=== PATIENT | female | born 1995 | race Caucasian/White ===

== ENCOUNTER 2019-05-06 12:33 | Day surgery (SDC) | payer OTHER, SELFPAY ==
[2019-05-01 12:36] VITALS: BMI 28.0
[2019-05-06] VITALS (8 sets, daily range): BP systolic 101–131; BP diastolic 67–84; PULSE 78–113; RESP 14–20; TEMP 36.2–36.8; O2SAT 92–100; BMI 27.1
--- NOTE | 2019-05-06 12:40 | SUR.OPER ---
Lithotomy on padded OR bed, head on pillow, arms secured on padded arm boards at <90 degrees abduction. Legs secured in padded yellow fins stirrups.
[2019-05-06] MEDS: LACTATED RINGERS 1,000 ML 100 ML IV (12:47)
[2019-05-06] MEDS: CEFOTETAN 2 GM/50 ML PIGGYBACK IV (13:00)
[2019-05-06] MEDS: SCOPOLAMINE 1 PATCH TOP (13:03)
[2019-05-06] MEDS: BUPIVACAINE 0.5% W/ EPI (PF) VIAL 30 ML INJ (13:29)
--- NOTE | 2019-05-06 13:53 | PM.GYNOP.1 ---
Operative Date/Time/Diagnoses Date of procedure: 05/06/19 Time of procedure: 13:54 Pre-op diagnosis: Pelvic pain Rule out endometriosis Post-op diagnosis: other (Stage I endometriosis) Procedure: Procedures Operation Date: 05/06/19 13:30 Actual Procedures Side Surgeon jaya Palacios laprascopy, fulguration of endometriosis Miguel Angel Weaver MD Indications: Pelvic pain Rule out endometriosis Surgeon: Miguel Angel Weaver Anesthesia Type: General Operative Notes Findings: 2 small areas of endometriosis One area in right cul-de-sac One area on superior portion of left uterus sacral ligament Closure Type: primary Specimen(s): none Estimated blood loss (mL): 25 Blood products transfused: none Procedure in detail: The patient was placed supine upon the operating table. She was anesthetized. She was then placed in the dorsal lithotomy position examined under anesthesia. The patient had a retroverted uterus but no distinct masses. there is no cul-de-sac mass. There was no uterosacral studding. The patient was then draped and prepared in usual fashion. a speculum was set in place. The anterior lip of the cervix grasped with a toothed tenaculum. The uterine cervix was dilated to a Hegar 8. The Zumi insufflation cannula was placed in the bulb expanded. The tenaculum and speculum were then removed. gloves were changed and attention turned to the abdomen. the umbilicus was injected with 0.5% lidocaine and 1 to [id number] epinephrine. A sharp knife incision was made. The Veress needle was then placed and approximately 3.4 L of carbon dioxide gas were insufflated to a final resting pressure of 15 cm of water. The Veress needle was withdrawn. The 5 mm trocar set in place the laparoscopic placed there through. The pelvic contents were visualized. Patient appeared to have a sub serous or partially intramural left fundal leiomyoma. Tubes and ovaries appeared to be absolutely normal. the fimbriated ends were delicate. The anterior bladder flap was normal. the anterior peritoneum was normal. attention to the posterior peritoneum showed one small area of endometriosis in the right cul-de-sac. there was an additional area on the superior portion of the left uterosacral ligaments. These were all photographed. Upper abdomen was looked at. The appendix appeared to be normal. cecum appeared to be normal. the omentum appeared to be normal. gallbladder could be visualized appeared to be normal. liver appeared to be normal stomach appeared to be normal. there was no pill rolling of the fat. All peritoneal surfaces appeared to be normal. photographs were taken throughout. This having been ascertained an area in the mid left quadrant was injected with 0.5% lidocaine 1 to [id number] epinephrine. Sharp knife incision was made. 5 mm trocar was set in place. The PlasmaKinetic forceps was placed there through. Careful identification of the tube and left ovary were done and there was no evidence of endometriosis. The left ovarian fossa was looked at and was normal. the right ovarian fossa was looked at and was normal. the area of the left uterosacral ligament was isolated and fulgurated. Area in the cul-de-sac was isolated and fulgurated. No bleeding points were seen. All carbon dioxide gas was allowed to exit the abdomen. laparoscopic trocars were then removed. the two abdominal incisions were closed with horizontal mattress three 0 Vicryl suture. the skin was further approximated with Steri-Strips. The Zumi insufflation cannula was removed without difficulty. no bleeding points were seen. Patient was taken to the recovery room in satisfactory condition. Complications: none Post-operative Condition: stable Disposition: PACU Plan for aftercare: Home
--- NOTE | 2019-05-06 14:01 | SUR.PHASEI ---
report to Erma Jordan RN
--- NOTE | 2019-05-06 14:03 | SUR.PHASEI ---
assumed care of pt at this time. received bedside report from WILLIAM Allen. pt laying in bed talking with RN. Drsg's on abdomen observed to be c/d/i. Nicole-pad observed to be c/d/i. pt denies any nausea or pain/discomfort at this time.
--- NOTE | 2019-05-06 14:04 | P.DS_ITS ---
History of Present Illness Date Patient Seen: 05/06/19 Time Patient Seen: 14:02 Chief complaint: Pelvic pain rule out endometriosis Narrative: The patient is a 23-year-old single white female with secondary dysmenorrhea and persistent lower abdominal discomfort and pain. the patient was taken to surgery for investigation to rule out endometriosis or other intra- abdominal pathology. Discharge Providers Discharge Date: 05/06/19 Primary care physician: Jose Szymanski Discharge provider: Miguel Angel Weaver MD Summary Discharge Diagnosis: Pelvic pain Stage I endometriosis Hospital Course: Patient was admitted for diagnostic laparoscopy. She was taken to surgery and under direct laparoscopic visualization was found to have two small areas of endometriosis. 1 area was in the right cul-de-sac the other area was on the left uterosacral ligament. These were fulgurated. The abdomen was otherwise free of endometriosis as was the pelvis. Status at Discharge Cognitive/behavioral status at discharge: oriented Functional status at discharge: independent ambulation Overall status at discharge: patient is progressing back to baseline Time Spent with Patient Less than 30 minutes Exam Vital Signs (past 8 hours): - 05/06/19 12:51 05/06/19 13:58 Temperature 98.2 F 97.1 F L Pulse Rate 95 H 113 H Respiratory Rate 20 20 Blood Pressure 131/84 120/73 Pulse Oximetry 100 92 Oxygen Delivery Method Room Air Narrative Exam Narrative: Examination confined to the abdomen. Incisions look fine are not bleeding. There is minimal vaginal bleeding Discharge Plan Discharge Plan Patient Disposition: Home Discharge Med Rec/Prescriptions Prescriptions: New oxycodone-acetaminophen [Percocet] 5-325 mg tablet 1 tab PO Q4-6H PRN (Reason: pain) Qty: 10 RF: 0 Continued diphenhydramine-acetaminophen [Tylenol PM Extra Strength] 25-500 mg tablet 1 tab PO BEDTIME PRN (Reason: Sleep) RF: 0 norgestimate-ethinyl estradiol [Pgv-Ux-Fexdfg] 0.18/0.215/0.25 mg-25 mcg tablet 1 tab PO DAILY RF: 0 oxycodone-acetaminophen 5-325 mg tablet 1 tab PO Q4-6H PRN (Reason: pain) Qty: 10 RF: 0 Follow up/Referrals: Jose Szymanski [Primary Care Provider] - Miguel Angel Weaver MD [Physician] - 05/20/19 Discharge Orders: Discharge (Now); Ordered 05/06/19 Ordered By: Miguel Angel Weaver Provider Discharge Instructions Diet: Diet as Tolerated Activity: Up ad yvonne Skin/Wound/Dressing Care Report to your healthcare provider any signs of infection, such as:: chills, fever, increased pain, unusual drainage and unusual redness Dressing: Steri-Strip may remove in one week Visit Report/Discharge Packet Instructions: DI for Laparoscopy Stand Alone Forms: Surgery Discharge Discharge Data Primary Care Provider: Jose Szymanski Attending Provider: Miguel Angel Weaver
[2019-05-06] MEDS: HYDROCODONE/ACET 5/325 TABLET 1 TAB PO (14:16)
--- NOTE | 2019-05-06 15:22 | SUR.PHASEII ---
Nicole-pad observed to have small amount of red blood on it and umbilicus steri-strip observed to have small amount of red blood on it. pt dc to home in stable condition.
== END 2019-05-06 15:18 | disposition home or self-care (01) ==
PROVIDERS: PCP Physician Assistant Medical
PROC: 0U5B4ZZ Destruction of Endometrium, Percutaneous Endoscopic Approach (ICD-10-PCS; CPT 58662; principal; 2019-05-06 13:30)
DX: N80.3 Endometriosis of pelvic peritoneum (principal)
CPT/HCPCS: 58662; J1100; J1885; J2250; J2405; J2704; J3010

== ENCOUNTER → 2024-05-21 15:47 | Outpatient (CLI) | payer OTHER, SELFPAY ==
--- NOTE | 2024-05-21 15:51 | DI.US.S_ITS ---
PROCEDURE: US PELVIC COMPLETE INDICATIONS: pelvic pain/hx of endometriosis/fibroids/IUD TECHNIQUE: Real-time scanning was performed of the pelvic organs, with image documentation. Additional endovaginal scanning was necessary due to incomplete visualization of the adnexal and endometrial structures by transabdominal scanning. COMPARISON: None. FINDINGS: Uterus: Uterus is anteverted and normal in size at 3.4 x 5.4 x 9.1 cm. The myometrium is heterogeneous with scattered uterine fibroids. The endometrium measures 1.8 mm combined thickness. There is a left posterior submucosal 1.2 cm fibroid; a left posterior intramural 2.5 cm maximal dimension fibroid; a left-sided anterior subserosal 2.3 cm maximal dimension fibroid. A centrally positioned IUD is present. Ovaries: The right ovary measures 1.7 x 2.3 x 5.9 cm, with a calculated ovarian volume of 11.6 cc. Note is made of a 2.5 cm maximal dimension presumed resolving hemorrhagic right ovarian cyst. The left ovary measures 1.9 x 2.1 x 2.6 cm, with a calculated ovarian volume of 5.3 cc. The ovaries have a normal sonographic appearance. Less than 12 follicles can be seen in each ovary. No adnexal masses are seen. Other: No pathologic free abdominal or pelvic fluid. IMPRESSION: Anteverted uterus, scattered small fibroids. No endometrial abnormality. Scattered bilateral ovarian cysts but no dominant cyst or solid mass is seen. No suspicion for ovarian torsion. We strive to produce accurate, complete, and clear reports of imaging services. To assist us in improving patient care, this report was composed using standard report templates and voice recognition software. Therefore, it may contain abnormal punctuation, insertions and/or omissions. Occasional wrong-word or sound-alike substitutions may occur. Though we review the report and make efforts to correct it, we do recommend that the report be read carefully in proper context to recognize any text inaccuracies. Dictated by: Tristan Perez M.D. on 05/22/2024 at 10:17 Approved by: Tristan Perez M.D. on 05/22/2024 at 10:23
== END ==
PROVIDERS: Referring Provider Student in an Organized Health Care Education/Training Program; Visit Provider Student in an Organized Health Care Education/Training Program
DX: D25.0 Submucous leiomyoma of uterus (principal); D25.1 Intramural leiomyoma of uterus; D25.2 Subserosal leiomyoma of uterus; R10.2 Pelvic and perineal pain; Z97.5 Presence of (intrauterine) contraceptive device
CPT/HCPCS: 76856

== ENCOUNTER 2024-07-11 07:36 | Day surgery (SDC) | payer OTHER, SELFPAY ==
[2024-07-10 11:42] VITALS: BMI 25.3
[2024-07-11] VITALS (8 sets, daily range): BP systolic 100–127; BP diastolic 52–81; PULSE 62–96; RESP 10–16; TEMP 36.8–37.2; O2SAT 96–100; BMI 25.1
--- NOTE | 2024-07-11 | PATH_ITS ---
[facility] Accession Number: [id number] No. of containers..01 Tissue . 01 Material submitted: . uterus - UTERINE FIBROID . 01 Diagnosis: UTERINE FIBROID, CURETTINGS: Mixed weakly proliferative to inactive-type endometrium. Benign smooth muscle fragments, consistent with leiomyoma fragments. No endometrioid intraepithelial neoplasia and no malignancy identified. MRV 07/16/2024 1328 Local . 01 Electronically signed: . Elsa Sotomayor MD, Pathologist NPI- [id number] . 01 Gross description: . Received in formalin with two patient identifiers and uterine fibroid, are multiple, johns, rubbery soft tissue fragments admixed with mucohemorrhagic material aggregating to 2.7 x 2.7 x 0.4 cm. The specimen is submitted entirely in A1. ([id number]) /MRV 07/16/2024 1329 Local . 01 Pathologist provided ICD-10: D25.9 . 01 CPT . 873445 Specimen Comment: A courtesy copy of this report has been sent to [facility] Performed at: [address] [address], [place], [place] [id number] [address] MD Phone: [phone]
[2024-07-11] MEDS: LACTATED RINGERS 1,000 ML 42 ML IV ×2 (07:51→10:11)
[2024-07-11] MEDS: ACETAMINOPHEN 325 MG TABLET 975 MG PO (07:53)
[2024-07-11] MEDS: SCOPOLAMINE 1 PATCH TOP (08:08)
--- NOTE | 2024-07-11 08:51 | PM.PREOP ---
Pre-operative Note Interval Note History & Physical reviewed/Exam performed by Physician: Yes Changes to H&P: No H&P completed within 30 days and has changed as indicated here:: see H&P from 07/05/24; plan to do a pap in the OR per patient's request
--- NOTE | 2024-07-11 09:23 | SUR.OPER ---
Lithotomy on padded OR bed, head on pillow, arms secured on padded arm boards at <90 degrees abduction. Legs secured in padded yellow fins stirrups.
[2024-07-11] MEDS: BUPIVACAINE 0.25% (PF) 30 ML, EPINEPHrine 0.15 MG INJ (09:28)
[2024-07-11] MEDS: ROPIVACAINE 0.5% PF 5 MG/ML 20ML VIAL 10 ML INJ (09:53)
--- NOTE | 2024-07-11 10:38 | PM.OP.1 ---
Operative Date/Time/Diagnoses Date of procedure: 07/11/24 Time of procedure: 09:15 Pre-op diagnosis: 1. Endometriosis 2. Chronic pelvic pain 3. Uterine fibroids Post-op diagnosis: same Procedure & Clinicians Procedure: Diagnostic laparoscopy Fulguration of endometriosis Lysis of adhesions Diagnostic hysteroscopy Hysteroscopic myomectomy Mirena intrauterine device insertion Same procedure as scheduled: Yes Indications: 28-year-old female with history of endometriosis and chronic pelvic pain, as well as uterine fibroids, counseled in the office regarding medical and surgical management options. Patient desired to proceed with surgical management, thus was counseled and consented for the above procedures. Surgeon: Alesha [facility] [employer] Legal Assistant: Morales Montez Anesthesia Type: General Operative Notes Findings: Endometrial implants noted in the posterior cul-de-sac, right uterosacral ligament, and left uterosacral ligament. No implants seen in bilateral ovarian fossae, anterior cul-de-sac, or on the bowel. Normal appearing liver, gallbladder, stomach, and edge of spleen. No endometrial implants seen in the upper abdomen. Uterus noted to have a 2-3cm anterior fibroid (likely intramural), otherwise normal in appearance. Normal appearing bilateral fallopian tubes and bilateral ovaries. The uterine cavity showed a 2cm submucosal fibroid on the left side. Bilateral tubal ostia visualized. Specimen(s): other (uterine fibroid) Applied: implant(s) (Mirena IUD) Estimated Blood Loss (mL): 100 Blood products transfused: none Procedure in detail: The risks, benefits, indications and alternatives of the procedure were reviewed with the patient and informed consent was obtained. The pt was taken to the operating room where general anesthesia was obtained without difficulty. The pt was then placed in the low lithotomy position using gel-padded Tal Stirrups. Bilateral SCDs were placed for VTE prophylaxis. No preop antibiotics were indicated. Pt was then prepped and draped in the usual sterile fashion. A Graham catheter was placed without difficulty. Attention was then turned to the patient?s abdomen where a 5mm skin incision was made in the inferior aspect of the umbilicus after injection of 0.25% marcaine. A 5mm trocar and sleeve were then carefully introduced into the peritoneal cavity under direct visualization at a 90-degree angle while tenting up the abdominal wall. Intra-peritoneal placement was confirmed under direct visualization with the laparoscope with entry pressure <5mmHg. A pneumoperitoneum was obtained with several liters of CO2 gas, maximum pressure of 15mmHg. Upon entry into the peritoneal cavity, structures immediately below the incision were inspected and found to be free of injury. Two additional 5mm trocars were placed, one on the right and one on the left lateral aspect of the abdominal wall, under direct laparoscopic visualization after injection of 0.25% marcaine at each site. A survey of the pt?s abdomen and pelvis was notable for the above findings. Using monopolar scissors, the pelvic endometrial implants were fulgurated. There was an adhesion noted between the right abdominal wall and the bowel, and this was taken down with monopolar scissors. 20cc of Ropivicaine was placed in the pelvis for post-operative analgesia. The gas was then turned off and all CO2 was removed from the pt?s abdomen. The trocars were removed. The skin incision sites were reapproximated using 4-0 monocryl and dermabond. Attention was then turned to the vagina, where a sterile speculum was placed in the patient?s vagina and the cervix was visualized. A [place] forcep was used to grasp the IUD strings, and remove the IUD. A single tooth tenaculum was used to grasp the anterior lip of the cervix. The cervix was then gently, serially dilated to a size 8mm hegar dilator. The Myosure operative hysteroscope was first primed and pressure set. The operative hysteroscope was then advanced through the endocervical canal under direct visualization. The uterus was distended with warm saline, and a survey of the uterus showed the above findings. The Myosure XL was then inserted into the operative hysteroscope and a myomectomy was performed. The operative hysteroscope was then removed under direct visualization. A Mirena IUD was then placed per compliance lead's protocol, and the strings were trimmed to 2cm. The single tooth tenaculum was then removed from the anterior lip of the cervix. The tenaculum site was noted to be hemostatic after direct pressure and silver nitrate was applied. All instruments were then removed from the patient?s vagina. Hysteroscopic fluid deficit was approximately 300cc of normal saline. The patient tolerated the procedure well. At the completion of the case the sponge and needle counts were correct x 2. The patient was taken to the PACU in stable condition.. Mirena IUD Lot [id number] Exp 07/2026 Complications: none Post-operative Condition: stable Disposition: PACU Plan for aftercare: Discharge to home once meeting criteria. Plan for outpatient follow-up as scheduled.
[2024-07-11] MEDS: hydrOXYzine 50 MG/ML INJ IM (11:40)
[2024-07-11] MEDS: METOCLOPRAMIDE 10 MG/2 ML INJ IV (11:41)
== END 2024-07-11 11:44 | disposition home or self-care (01) ==
PROVIDERS: Referring Provider Student in an Organized Health Care Education/Training Program; Visit Provider Student in an Organized Health Care Education/Training Program
PROC: 0U5B4ZZ Destruction of Endometrium, Percutaneous Endoscopic Approach (ICD-10-PCS; CPT 58662; principal; 2024-07-11 09:00)
PROC: 0UDB8ZZ Extraction of Endometrium, Via Natural or Artificial Opening Endoscopic (ICD-10-PCS; CPT 58558; 2024-07-11 09:00)
DX: N80.3C3 Endometriosis of bilateral uterosacral ligament(s), unspecified depth (principal); N80.329 Endometriosis of the posterior cul-de-sac, unspecified depth; D25.0 Submucous leiomyoma of uterus; Z30.433 Encounter for removal and reinsertion of intrauterine contraceptive device
CPT/HCPCS: 58662; 58561; 58300; 58301; 81025; J0171; J0330; J1100; J1170; J1885; J2250; J2405; J2704; J2765; J3010; J3410; J3490; J7298